=== PATIENT | female | born 1990 | race American Indian/Alaskan Native ===

== ENCOUNTER 2019-05-01 15:14 | Outpatient (CLI) | payer MEDICARE ==
[2019-05-01 15:36] VITALS: BP 118/74
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
== END 2019-05-01 16:44 | disposition home or self-care (01) ==
LOC: LD 15:14 → TRG 15:14 → EDSTATUS 15:22 → TRG 15:25 → LD 16:44
PROVIDERS: ATTEND Obstetrics & Gynecology
DX: O26.892 Other specified pregnancy related conditions, second trimester (principal); R10.9 Unspecified abdominal pain; V89.2XXA Person injured in unspecified motor-vehicle accident, traffic, initial encounter; Y93.89 Activity, other specified; Y92.89 Other specified places as the place of occurrence of the external cause; Y99.8 Other external cause status
CPT/HCPCS: 76819

== ENCOUNTER 2021-01-20 13:50 | Emergency (ER) | payer MEDICAID, MEDICARE ==
[2021-01-20 15:29] LABS: Basophils # (Auto) 0.1 K/mm3 (0.0-0.1); Basophils % (Auto) 1.2 % (0.0-1.8); Eosinophils # (Auto) 0.2 K/mm3 (0.0-0.4); Eosinophils % (Auto) 2.6 % (0.0-4.3); Hematocrit 36.1 % (30.3-42.9); Hemoglobin 11.4 gm/dl (10.1-14.3); Lymphocytes # (Auto) 2.5 K/mm3 (1.2-5.4); Lymphocytes % (Auto) 38.4 % (13.4-35.0); Mean Corpuscular HGB Conc 32 % (30-34); Mean Corpuscular Volume 78 fl (79-97); Monocytes # (Auto) 0.6 K/mm3 (0.0-0.8); Monocytes % (Auto) 9.9 % (0.0-7.3); Platelet Count 340 K/mm3 (140-440); Red Blood Count 4.63 M/mm3 (3.65-5.03); Red Cell Distribution Width 14.6 % (13.2-15.2)
[2021-01-20 16:17] VITALS: BP 134/87
--- NOTE | 2021-01-20 16:22 | Emergency Department Report ---
ED General Adult HPI - General Chief complaint: High BP Stated complaint: HIGH BP Time Seen by Provider: 01/20/21 14:34 Source: patient Mode of arrival: Ambulatory Limitations: No Limitations - History of Present Illness Initial comments: 30-year-old -[place] female patient presents for elevated blood pressure today. She states that she was referred to the ED by her oral surgeon when her pressure was noted to be 144/105 prior to getting her wisdom tooth pulled today. She states the oral surgeon stated he could not complete the procedure due to her blood pressure and referred her to the ED. She denies any headache, vision changes, chest pain, shortness of breath, numbness/tingling/weakness in her limbs, difficulty with speech/ambulation, confusion, or memory loss. Past medical history includes preeclampsia. Patient states she has not had any issues with her blood pressure since having her second child a few years ago. No other past medical history per patient. She states she is feeling well - Related Data Allergies Allergy/AdvReac Type Severity Reaction Status Date / Time Sulfa (Sulfonamide Allergy Rash Verified 01/20/21 13:56 Antibiotics) ED Review of Systems ROS: Stated complaint: HIGH BP Other details as noted in HPI Constitutional: denies: fever, malaise ENT: dental pain Respiratory: see HPI Cardiovascular: as per HPI Neurological: as per HPI ED Past Medical Hx - Past Medical History Hx Hypertension: No Hx Diabetes: No Hx Deep Vein Thrombosis: No Hx Renal Disease: No Hx Sickle Cell Disease: No Hx Seizures: No Hx Asthma: No Hx HIV: No - Social History Smoking Status: Never Smoker ED Physical Exam - General Limitations: No Limitations General appearance: alert, in no apparent distress, obese - Head Head exam: Present: atraumatic, normocephalic - Eye Eye exam: Present: normal appearance - Respiratory Respiratory exam: Absent: respiratory distress - Cardiovascular Cardiovascular Exam: Present: regular rate, normal rhythm - Neurological Exam Neurological exam: Present: alert, oriented X3, normal gait - Psychiatric Psychiatric exam: Present: normal affect, normal mood - Skin Skin exam: Present: warm, dry, intact, normal color. Absent: rash ED Course Vital Signs 01/20/21 01/20/21 13:54 16:16 Temperature 98 F Pulse Rate 81 Respiratory 16 Rate Blood Pressure 166/106 134/87 [Left] O2 Sat by Pulse 100 Oximetry ED Medical Decision Making - Lab Data Result diagrams: 01/20/21 14:59 - Medical Decision Making 30-year-old -[place] female patient presents for elevated blood pressure today. She states that she was referred to the ED by her oral surgeon when her pressure was noted to be 144/105 prior to getting her wisdom tooth pulled today. She states the oral surgeon stated he could not complete the procedure due to her blood pressure and referred her to the ED. She denies any headache, vision changes, chest pain, shortness of breath, numbness/tingling/weakness in her limbs, difficulty with speech/ambulation, confusion, or memory loss. Past medical history includes preeclampsia. Patient states she has not had any issues with her blood pressure since having her second child a few years ago. No other past medical history per patient. She states she is feeling well Blood pressure upon recheck here in ED is noted to be 130/87. No neuro symptoms per patient. No acute abnormalities noted on labs. She is well-appearing and stable for discharge home. Patient to follow-up with primary care for further evaluation of her blood pressure. Strict return precautions were discussed in detail with patient who verbalizes understanding Critical care attestation.: If time is entered above; I have spent that time in minutes in the direct care of this critically ill patient, excluding procedure time. ED Disposition Clinical Impression: Elevated blood pressure reading Disposition: 01 HOME / SELF CARE / HOMELESS Is pt being admited?: No Condition: Stable Instructions: Managing Your Hypertension Referrals: [facility] [Provider Group] - 3-5 Days BEATRIZ ARREOLA MD [Staff Physician] - 3-5 Days Forms: Work/School Release Form(ED)
[2021-01-20 17:02] LABS: Alanine Aminotransferase 8 units/L (7-56); Blood Urea Nitrogen 7 mg/dL (7-17); Hemolysis Index 80
[2021-01-20 17:06] LABS: BUN/Creatinine Ratio 12; Bilirubin,Direct < 0.2 mg/dL (0-0.2)
== END 2021-01-20 17:28 | disposition home or self-care (01) ==
LOC: ED 13:50
DX: R03.0 Elevated blood-pressure reading, without diagnosis of hypertension (principal); I10 Essential (primary) hypertension; Z88.2 Allergy status to sulfonamides
CPT/HCPCS: 36415; 80048; 80076; 84703; 85025; 99283